=== PATIENT | male | born 1950 | race Two or more races ===

== ENCOUNTER 2018-05-19 11:25 | Emergency (ER) | payer BC, OTHER ==
[~2018-05-19] VITALS: Ht 172.7 cm; Wt 89.8 kg
[2018-05-19 13:18] VITALS: BP 140/82
== END 2018-05-19 14:06 | disposition home or self-care (01) ==
LOC: ER 11:25
DX: R33.9 Retention of urine, unspecified (principal); E11.9 Type 2 diabetes mellitus without complications; I10 Essential (primary) hypertension; Z85.46 Personal history of malignant neoplasm of prostate
CPT/HCPCS: 51702; 82962

== ENCOUNTER 2020-06-16 07:55 | Emergency (ER) | payer BC, OTHER ==
[~2020-06-16] VITALS: Ht 172.7 cm; Wt 86.6 kg
[2020-06-16 08:00] VITALS: BP 164/97
== END 2020-06-16 10:06 | disposition home or self-care (01) ==
LOC: ER 07:55
DX: S46.912A Strain of unspecified muscle, fascia and tendon at shoulder and upper arm level, left arm, initial encounter (principal); E11.9 Type 2 diabetes mellitus without complications; I10 Essential (primary) hypertension; E78.5 Hyperlipidemia, unspecified; X58.XXXA Exposure to other specified factors, initial encounter; Y93.89 Activity, other specified; Y99.8 Other external cause status; Y92.89 Other specified places as the place of occurrence of the external cause
CPT/HCPCS: 73030; 93005